=== PATIENT | female | born 1985 | race Two or more races ===

== ENCOUNTER 2020-10-17 15:50 | Emergency (ER) | payer BC ==
[~2020-10-17] VITALS: Ht 165.1 cm; Wt 56.5 kg
--- NOTE | 2020-10-17 16:35 | NUR ---
RAYON CONER: PT TO ROOM FROM LOBBY
[2020-10-17] MEDS ORDERED: FLUO40CA9 PO (17:00)
[2020-10-17] MEDS ORDERED: [UNRECOGNIZED DRUG - OTHER] (17:00)
[2020-10-17] MEDS ORDERED: KETOROLAC 30 MG/1 ML IVPush ONE (18:00)
[2020-10-17] MEDS ORDERED: METOCLOPRAMIDE 5 MG/ML, 2ML IVPush ONE (18:00)
[2020-10-17] MEDS ORDERED: SODIUM CHLORIDE FLUSH 10ML SYR IVF ONE (18:00)
[2020-10-17] MEDS ORDERED: DIPHENHYDRAMINE 50 MG/ML, 1ML IVPush ONE (18:00)
[2020-10-17] MEDS ORDERED: KETOROLAC 30 MG/1 ML ONE (18:13)
[2020-10-17] MEDS ORDERED: DIPHENHYDRAMINE 50 MG/ML, 1ML ONE (18:13)
[2020-10-17] MEDS ORDERED: METOCLOPRAMIDE 5 MG/ML, 2ML ONE (18:13)
--- NOTE | 2020-10-17 18:16 | NUR ---
BREAK RN- PT BACK FROM CT, MEDICATION PROVIDED
[2020-10-17 18:53] LABS: BASOPHILS % (AUTO) 1 % (0-1); EOSINOPHILS % (AUTO) 1 % (1-7); LYMPHOCYTES % (AUTO) 38 % (22-44); MEAN CORPUSCULAR HEMOGLOBIN 31.6 pg (27.0-34.8); MEAN CORPUSCULAR HGB CONC 34.1 g/dL (32.4-35.8); MEAN PLATELET VOLUME 8.9 fL (7.4-10.4); MONOCYTES % (AUTO) 6 % (2-9); NEUTROPHILS % (AUTO) 54 % (42-75); PLATELET COUNT 205 x10^3/uL (130-400); RED BLOOD COUNT 4.08 x10^6/uL (3.82-5.3); RED CELL DISTRIBUTION WIDTH 12.9 % (9.6-15.2)
--- NOTE | 2020-10-17 18:55 | NUR ---
BEDSIDE REPORT RECEIVED FROM TACHO CASE
--- NOTE | 2020-10-17 18:57 | NUR ---
REPORT GIVEN TO NA CASE.
[2020-10-17 18:58] LABS: MD NO
--- NOTE | 2020-10-17 19:00 | NUR ---
PT SITTING UPRIGHT ON MALINI LEON VSS. PT REPORTS COMPLETE RELIEF OF MEADOWS, NO ADDITIONAL COMPLAINTS OR NEEDS AT THIS TIME. CALL LIGHT AND PERSONAL BELONGINGS WITHIN REACH. SIGNIFICANT OTHER AT BEDSIDE.
[2020-10-17 19:05] LABS: ALBUMIN 3.8 g/dL (3.4-5.0); ANION GAP 8 mmol/L (5-15); CALCIUM 8.5 mg/dL (8.5-10.1); CHLORIDE 107 mmol/L (98-107); CREATININE 0.96 mg/dL (0.55-1.02)
--- NOTE | 2020-10-17 20:23 | NUR ---
Patient given discharge instructions and they have confirmed that they understand the instructions. Patient ambulatory with steady gait.
[2020-10-17 20:24] VITALS: BP 5/66
== END 2020-10-17 20:25 | disposition home or self-care (01) ==
LOC: ED 20:09
DX: G44.52 New daily persistent headache (NDPH) (principal); R11.2 Nausea with vomiting, unspecified; R53.1 Weakness
CPT/HCPCS: 36415; 70450; 80048; 82040; 85025; 96374; 96375; 99285; J1200; J1885; J2765